=== PATIENT | female | born 1975 | race Caucasian/White ===

== ENCOUNTER 2019-04-22 20:03 | Emergency (ER) | payer OTHER ==
[~2019-04-22] VITALS: Ht 170.2 cm; Wt 77.1 kg
[~2019-04-22 20:03] MED LIST: ADDERALL 20 MG20 M1 PO; FLEXERIL PO; IBUPROFEN 800800 M1 PO; PERCOCET PO
[2019-04-22 20:15] VITALS: BP 176/91
[2019-04-22] MEDS ORDERED: NORCO 5-325 TA1 EAC1 PO (20:47)
[2019-04-22] MEDS ORDERED: IBUPROFEN 800800 M1 PO (20:47)
[2019-04-22] MEDS ORDERED: KEFLEX500 M1 PO (20:47)
== END 2019-04-22 21:03 | disposition home or self-care (01) ==
LOC: M.ERS 20:03
DX: S92.422A Displaced fracture of distal phalanx of left great toe, initial encounter for closed fracture (principal); W22.8XXA Striking against or struck by other objects, initial encounter; Y93.89 Activity, other specified; Y92.89 Other specified places as the place of occurrence of the external cause; Y99.8 Other external cause status